=== PATIENT | male | born 1990 | race Caucasian/White ===

== ENCOUNTER 2018-04-07 16:32 | Emergency (ER) | payer OTHER, SELFPAY ==
[2018-04-07 16:36] VITALS: BP 143/94; PULSE 83; RESP 20; TEMP 36.3; O2SAT 97
--- NOTE | 2018-04-07 16:53 | ED.EAR ---
HPI - Ear Problem <DEEPTHI Laguna - Last Filed: 04/07/18 22:09> General Chief complaint: Ear Stated complaint: STATES BUG IN RIGHT EAR WANTS IT OUT NOW Time Seen by Provider: 04/07/18 16:52 Source: patient Mode of arrival: ambulatory Limitations: no limitations History of Present Illness HPI Narrative: Healthy 27-year-old male smoker here for complaint of having a bug in his right ear earlier today. He states that he was outside when he said that he had a friend that noticed that there was a bug flank around year next thing he knew he felt movement and noise to his right ear. He states that he can feel the insect moving in his right ear. He denies any other concerns or complaints at this time. MD Complaint: foreign body Review of Systems <DEEPTHI Laguna - Last Filed: 04/07/18 22:09> Constitutional Denies chills, Denies fever(s), Denies lethargy and Denies weakness Eyes Denies change in vision, Denies eye discharge, Denies irritation and Denies loss of vision ENT Comments: States insect to right ear Cardiovascular Denies chest pain, Denies irregular heart rhythm, Denies lightheadedness, Denies palpitations, Denies dyspnea, Denies dyspnea on exertion and Denies orthopnea Respiratory Denies cough, Denies dyspnea, Denies dyspnea on exertion and Denies wheezing Gastrointestinal Gastrointestinal: Denies abdominal pain, Denies change in bowel habits, Denies diarrhea, Denies nausea and Denies vomiting Genitourinary Denies hematuria, Denies flank pain, Denies urinary incontinence and Denies urinary urgency Musculoskeletal Denies back pain, Denies muscle weakness, Denies numbness and Denies tingling Integumentary/Breasts Denies pruritus, Denies erythema, Denies rash and Denies wounds Neurologic Denies confusion, Denies loss of vision, Denies numbness, Denies tingling and Denies weakness Psychiatric Denies anxiety, Denies confusion, Denies depression, Denies homicidal ideation and Denies suicidal ideation Endocrine Denies palpitations Hematologic/Lymphatic Denies easy bruising Allergic/Immunologic Denies wheezing Exam <DEEPTHI Laguna - Last Filed: 04/07/18 22:09> Initial Vital Signs Initial Vital Signs: Vital Signs Temperature 97.3 F L 04/07/18 16:36 Pulse Rate 83 09/20/18 16:36 Respiratory Rate 20 04/07/18 16:36 Blood Pressure 143/94 H 04/07/18 16:36 Pulse Oximetry 97 04/07/18 16:36 Const General: cooperative and well developed Nutritional Appearance: well nourished Orientation: alert, awake, oriented x3 and not confused HENMT Ears: TM's normal bilaterally and EAC abnormal (Foreign body to right ear) Mouth: oral mucosae normal and moist mucous membranes Eyes Conjunctivae: conjunctivae normal Sclera: sclerae normal Pupils: PERRL EOM: EOM intact bilaterally Resp Effort & Inspection: normal respiratory effort, able to speak in complete sentences, no respiratory distress and no use of accessory muscles Auscultation: clear to auscultation bilaterally, no rales, no rhonchi and no wheezes Cardio Rate: regular rate Rhythm: regular rhythm Heart Sounds: no click, no gallops, no murmurs and no rubs Pulses: normal peripheral pulses Skin General: no rashes or lesions noted, No jaundice and No petechiae Neuro General: alert, oriented x3, gait normal and no focal motor deficits Speech: speech normal <Amaya Bonner DO - Last Filed: 04/10/18 08:14> Initial Vital Signs Initial Vital Signs: Vital Signs Temperature 97.3 F L 04/07/18 16:36 Pulse Rate 83 04/07/18 16:36 Respiratory Rate 20 04/07/18 16:36 Blood Pressure 143/94 H 04/07/18 16:36 Pulse Oximetry 97 04/07/18 16:36 Procedures <DEEPTHI Laguna - Last Filed: 04/07/18 22:09> Foreign Body EAR Location: ear canal (R) Foreign Body Suspected: insect TM intact pre-procedure: unable to visualize If Insect Suspected: ear canal instilled with other Foreign Body Removed: yes Foreign Body Removal Technique: irrigation Tympanic Membrane Intact Post Procedure: Yes Patient Tolerated Procedure: Well Complications: none Course <DEEPTHI Laguna - Last Filed: 04/07/18 22:09> Vital Signs - 8 hr 04/07/18 16:36 Temperature 97.3 F L Pulse Rate 83 Respiratory Rate 20 Blood Pressure 143/94 H Pulse Oximetry 97 <Amaya Bonner DO - Last Filed: 04/10/18 08:14> Vital Signs - 8 hr 04/07/18 16:36 Temperature 97.3 F L Pulse Rate 83 Respiratory Rate 20 Blood Pressure 143/94 H Pulse Oximetry 97 Medical Decision Making <DEEPTHI Laguna - Last Filed: 04/07/18 22:09> MDM Narrative Medical decision making narrative: Insect foreign body to right ear canal was able to be removed with irrigation with normal saline. Patient felt better after procedure. Patient tolerated well no complications. Follow up with primary care provider next week for re-evaluation. For any worsening symptoms return emergency room. [id number] Tylenol or Motrin as needed for any discomfort. Discharge Plan Departure Patient Disposition: Home Clinical Impression: Foreign body in right ear Discharge Date/Time: 04/07/18 17:17 Interventions: ED Discharge Assessment Last Done: 04/07/18 17:17 Instructions: DI for Removal of Foreign Body From Ear Activity Restrictions/Additional Instructions: A moth was in a your right ear it was removed here in the emergency room. Use [id number] Tylenol or Motrin as needed for any discomfort. Follow up with her primary care provider next week. For any worsening symptoms return Referrals: Mitchell Clark MD [Primary Care Provider] - <Amaya Bonner DO - Last Filed: 04/10/18 08:14> Cosign ED Attending Cosignature Attestation: I was immediately available in the department for consultation. This documentation has been reviewed and I agree with assessment and plan. Supervised by Amaya Bonner DO
== END 2018-04-07 17:17 | disposition home or self-care (01) ==
PROVIDERS: Emergency Provider Nurse Practitioner Family; PCP Family Medicine
DX: T16.1XXA Foreign body in right ear, initial encounter (principal)
CPT/HCPCS: 99282

== ENCOUNTER 2024-04-03 11:42 | Emergency (ER) | payer SELFPAY ==
[2024-04-03 11:52] VITALS: BP 143/94; PULSE 104; RESP 18; TEMP 37.1; O2SAT 95; BMI 26.4
--- NOTE | 2024-04-03 11:55 | ED.GENADULT ---
HPI - General Adult <Jonn Borrego PA-C - Last Filed: 04/03/24 13:27> General Chief complaint: Extremity Injury, Upper Stated complaint: needs stitches, lt hand Time Seen by Provider: 04/03/24 11:55 History of Present Illness HPI narrative: 33-year-old male presents to the ED with multiple lacerations to the left hand sustained just prior to arrival. Patient has 2 lacerations across the dorsal aspect of the left hand and 3 lacerations to the palmar aspect of the left hand. All lacerations of perfectly linear. Patient is reluctant to state the mechanism of injury. Denies that the wounds are self inflicted. Denies that somebody else tried to hurt him. Patient states he had a few beers prior to the injury. Patient states that he has not had a tetanus shot in a long time and agrees to be updated. Patient states that there was no blunt injury or crush injury and declines x-rays. Patient states he just wants his lacerations repaired. No numbness, tingling, weakness. Related Data Home Medications Medication Instructions Recorded Confirmed No Known Home Medications 12/20/20 12/20/20 Allergies Allergy/AdvReac Type Severity Reaction Status Date / Time No Known Drug Allergies Allergy Unverified 12/20/20 09:11 Review of Systems <Jonn Borrego PA-C - Last Filed: 04/03/24 13:27> Constitutional Constitutional: Denies chills, Denies fatigue, Denies fever(s), Denies frequent falls, Denies lethargy and Denies weakness Eyes Eyes: Denies change in vision, Denies eye discharge, Denies irritation and Denies loss of vision ENT Ears, Nose, Mouth, and Throat: Denies change in voice, Denies dizziness, Denies neck pain, Denies sore throat and Denies throat swelling Cardiovascular Cardiovascular: Denies chest pain, Denies irregular heart rhythm, Denies lightheadedness, Denies palpitations, Denies dyspnea, Denies dyspnea on exertion and Denies orthopnea Respiratory Respiratory: Denies cough, Denies dyspnea, Denies dyspnea on exertion and Denies wheezing Gastrointestinal Gastrointestinal: Denies abdominal pain, Denies change in bowel habits, Denies diarrhea, Denies nausea and Denies vomiting Musculoskeletal Musculoskeletal: Denies neck pain and Denies numbness Integumentary/Breasts Skin/Breast: Denies pruritus, Denies erythema, Denies rash and Denies wounds Comments: Multiple lacerations to the left hand Neurologic Neurologic: Denies behavioral changes, Denies confusion, Denies dizziness, Denies frequent falls, Denies loss of vision, Denies numbness and Denies weakness Psychiatric Psychiatric: Denies anxiety, Denies behavioral changes, Denies confusion, Denies depression, Denies homicidal ideation and Denies suicidal ideation Endocrine Endocrine: Denies fatigue, Denies flushing and Denies palpitations Hematologic/Lymphatic Hematologic/Lymphatic: Denies easy bruising Allergic/Immunologic Allergic/Immunologic: Denies urticaria, Denies throat swelling and Denies wheezing Patient History <Jonn Borrego PA-C - Last Filed: 04/03/24 13:27> Social History Smoking Status: Current every day smoker Smoking Status: Current every day smoker alcohol intake frequency: a few times a week Substance Use Type: marijuana Exam <Jonn Borrego PA-C - Last Filed: 04/03/24 13:27> Narrative Exam Narrative: Const General:?cooperative, healthy appearing and comfortable [facility] Head:?normal to inspection Ears:?hearing grossly normal bilaterally Nose:?external nose normal Face and sinus:?normal facial exam and sinuses nontender Mouth:?oral mucosae normal Throat:?posterior oropharynx normal Eyes General:?appearance normal, both eyes and all related structures Neck Neck:?normal visual inspection and no lymphadenopathy noted Resp Effort & Inspection:?normal respiratory effort Auscultation:?clear to auscultation bilaterally Cardio Rate:?regular rate Rhythm:?regular rhythm Integumentary There are 5 perfectly linear lacerations to the left hand. Two of the lacerations are to the dorsal aspect of the hand, well the other 3 are to the palmar aspect. Bleeding is controlled with pressure. There is full range of motion. Strength and sensation is intact. Patient is neurovascularly intact. Neuro General:?patient alert, patient awake and patient oriented x3 Initial Vital Signs Initial Vital Signs: Vital Signs Temperature 98.8 F 04/03/24 11:52 Pulse Rate 104 H 04/03/24 11:52 Respiratory Rate 18 04/03/24 11:52 Blood Pressure 143/94 H 04/03/24 11:52 Pulse Oximetry 95 04/03/24 11:52 Oxygen Delivery Method Room Air 04/03/24 11:52 <Magno Gibson DO - Last Filed: 04/03/24 13:37> Initial Vital Signs Initial Vital Signs: Vital Signs Temperature 98.8 F 04/03/24 11:52 Pulse Rate 104 H 04/03/24 11:52 Respiratory Rate 18 04/03/24 11:52 Blood Pressure 143/94 H 04/03/24 11:52 Pulse Oximetry 95 04/03/24 11:52 Oxygen Delivery Method Room Air 04/03/24 11:52 Procedures <Jonn Borrego PA-C - Last Filed: 04/03/24 13:27> Laceration Repair Laceration 1: Site: hand Side (If applicable): left Size (cm): 3.5 Description: linear Local Anesthetic: lidocaine 1% Amount of anesthesia used (mL): 1 Pre-repair: wound explored, irrigated extensively and deep structures intact Skin layer closed with: nylon Skin layer suture size: 5-0 Number of sutures: 3 Technique: simple, interrupted Laceration 2: Site: hand Side (If applicable): left Size (cm): 2 Description: linear Local Anesthetic: lidocaine 1% Amount of anesthesia used (mL): 1 Pre-repair: wound explored, irrigated extensively and deep structures intact Skin layer closed with: nylon Skin layer suture size: 5-0 Number of sutures: 2 Technique: simple, interrupted Laceration 3: Site: hand Side (If applicable): left Size (cm): 3 Description: linear Local Anesthetic: lidocaine 1% Amount of anesthesia used (mL): 1 Pre-repair: wound explored, irrigated extensively and deep structures intact Skin layer closed with: nylon Skin layer suture size: 5-0 Number of sutures: 3 Technique: simple, interrupted Laceration 4: Site: hand Side (If applicable): left Size (cm): 3 Description: linear Depth: simple, single layer Local Anesthetic: lidocaine 1% Amount of anesthesia used (mL): 1 Pre-repair: wound explored, irrigated extensively and deep structures intact Skin layer closed with: nylon Skin layer suture size: 5-0 Number of sutures: 3 Technique: simple, interrupted Laceration 5: Site: hand Side (If applicable): left Size (cm): 2.5 Description: linear Depth: simple, single layer Local Anesthetic: lidocaine 1% Amount of anesthesia used (mL): 1 Pre-repair: wound explored, irrigated extensively and deep structures intact Skin layer closed with: nylon Skin layer suture size: 5-0 Number of sutures: 2 Technique: simple, interrupted Course <Jonn Borrego PA-C - Last Filed: 04/03/24 13:27> Orders Ordered: Discontinued Medications Bacitracin (Bacitracin Oint 0.9 Gm Pckt) 2 applic TOP NOW ONE Stop: 04/03/24 13:08 Last Admin: 04/03/24 13:13 Dose: 2 applic Documented By: CTS Diphtheria/Tetanus/Acell Pertussis (Tet,Diph,Pertuss(Acell),Vac/Pf 0.5 Ml Syringe) 0.5 ml IM .ONCE ONE Stop: 04/03/24 12:06 Last Admin: 04/03/24 12:17 Dose: 0.5 ml Documented By: CTS Lidocaine HCl (Lidocaine 1% (Pf) 5 Ml) 10 ml INJ NOW ONE Stop: 04/03/24 12:19 Last Admin: 04/03/24 12:22 Dose: 10 ml Documented By: CTS Vital Signs Vital signs: Vital Signs - 8 hr 04/03/24 11:52 04/03/24 13:30 Temperature 98.8 F Pulse Rate 104 H 99 H Respiratory Rate 18 20 Blood Pressure 143/94 H 138/86 Pulse Oximetry 95 99 Oxygen Delivery Method Room Air Room Air <Magno Gibson DO - Last Filed: 04/03/24 13:37> Orders Ordered: Discontinued Medications Bacitracin (Bacitracin Oint 0.9 Gm Pckt) 2 applic TOP NOW ONE Stop: 04/03/24 13:08 Last Admin: 04/03/24 13:13 Dose: 2 applic Documented By: CTS Diphtheria/Tetanus/Acell Pertussis (Tet,Diph,Pertuss(Acell),Vac/Pf 0.5 Ml Syringe) 0.5 ml IM .ONCE ONE Stop: 04/03/24 12:06 Last Admin: 04/03/24 12:17 Dose: 0.5 ml Documented By: CTS Lidocaine HCl (Lidocaine 1% (Pf) 5 Ml) 10 ml INJ NOW ONE Stop: 04/03/24 12:19 Last Admin: 04/03/24 12:22 Dose: 10 ml Documented By: CTS Vital Signs Vital signs: Vital Signs - 8 hr 04/03/24 11:52 04/03/24 13:30 Temperature 98.8 F Pulse Rate 104 H 99 H Respiratory Rate 18 20 Blood Pressure 143/94 H 138/86 Pulse Oximetry 95 99 Oxygen Delivery Method Room Air Room Air Medical Decision Making <Jonn Borrego PA-C - Last Filed: 04/03/24 13:27> [facility] Narrative Medical decision making narrative: 33-year-old male presents to the ED with multiple lacerations to the left hand sustained just prior to arrival. Two dorsal and 3 palmar lacerations were repaired with sutures. Total of 13 sutures that will need to be removed in 7-10 days. Wound care, suture removal instructions discussed with patient. Patient's tetanus was updated. ED return precautions discussed with patient. Patient verbalized understanding. Medical records reviewed: Yes <Magno Gibson DO - Last Filed: 04/03/24 13:37> [facility] Narrative Medical decision making narrative: 33-year-old male presents to the ED with multiple lacerations to the left hand sustained just prior to arrival. Two dorsal and 3 palmar lacerations were repaired with sutures. Total of 13 sutures that will need to be removed in 7-10 days. Wound care, suture removal instructions discussed with patient. Patient's tetanus was updated. ED return precautions discussed with patient. Patient verbalized understanding. Medical records reviewed: Yes Dr. Gibson: I was immediately available in the department for consultation. Documentation has been reviewed. I agree with assessment and plan. Discharge Plan Departure Patient Disposition: Home Clinical Impression: Laceration Instructions: DI for Laceration Repair Activity Restrictions/Additional Instructions: You were evaluated in the ED today for multiple cuts on your left hand. Your lacerations were repaired with 13 sutures total. The sutures will need to be removed in 7-10 days. You may return to the ED, go to a walk-in clinic or your primary care doctor for suture removal. Please watch for signs of infection including worsening redness, swelling, pain, warmth, discharge. Return to the ED if you note any signs of infection. Your tetanus was updated today and should be good for the next 10 years. Return to the ED if you have any signs of infection, note any numbness, tingling, weakness or worsening symptoms. Prescriptions: No Action No Known Home Medications Referrals: Kathy Watson MD [Primary Care Provider] - Stand Alone Forms: Patient Portal/API
[2024-04-03] MEDS: TET,DIPH,PERTUSS(ACELL),VAC/PF 0.5 ML SYRINGE IM (12:17)
[2024-04-03] MEDS: LIDOCAINE 1% (PF) 5 ML 10 ML INJ (12:22)
[2024-04-03] MEDS: BACITRACIN OINT 0.9 GM PCKT 2 APPLIC TOP (13:13)
[2024-04-03 13:30] VITALS: BP 138/86; PULSE 99; RESP 20; O2SAT 99
== END 2024-04-03 13:15 | disposition home or self-care (01) ==
PROVIDERS: Emergency Provider Student in an Organized Health Care Education/Training Program; PCP Family Medicine
DX: S61.412A Laceration without foreign body of left hand, initial encounter (principal); W45.8XXA Other foreign body or object entering through skin, initial encounter; Z23 Encounter for immunization
CPT/HCPCS: 12005; 90471; 99283; 99284; 90715